=== PATIENT | female | born 1955 | race Caucasian/White ===

== ENCOUNTER 2021-03-07 16:25 | Outpatient (CLI) | payer MEDICARE, MEDICAID, SELFPAY ==
[2021-03-07 14:26] LABS: Abs Immature Grans 0.05 10^3/uL (0.0-0.06); Absolute Basophil Count 0.05 10^3/uL (0.0-0.2); Absolute Eosinophil Count 0.21 10^3/uL (0.0-0.7); Absolute Lymphocyte Count 1.31 10^3/uL (1.2-3.4); Absolute Monocyte Count 0.62 10^3/uL (0.1-0.8); Absolute Neutrophil Count 7.94 10^3/uL (1.2-6.7); Basophils % 0.5; Eosinophils % 2.1; HCT 41.4 % (36.0-46.0); HGB 13.4 g/dL (11.2-15.7); Immature Grans % 0.5; Lymphocytes % 12.9; MCH 27.3 pg (27.0-33.0); MCHC 32.4 % (32.0-36.0); MCV 84.3 fL (80-95); MPV 10.8 fL (8.0-11.0); Monocytes % 6.1; Neutrophils % 77.9; Nucleated RBC 0 %; Platelet Count 249 10^3/uL (130-400); RBC 4.91 10^6/uL (3.93-5.22); RDW 13.2 % (11.7-14.6); RDW-SD 41.2 fL; WBC 10.18 10^3/uL (4.4-10.8)
[2021-03-07 15:43] LABS: ALT 15 U/L (14-59); AST 10 U/L (15-37); Albumin 3.6 g/dL (3.4-5.0); Alkaline Phosphatase 81 U/L (46-116); Anion Gap 9.6 mmol/L (3-11); BUN 24 mg/dL (7-18); Bilirubin, Total 0.5 mg/dL (0.2-1.0); CO2 26.4 mmol/L (21.0-32.0); CREATININE 1.1 mg/dL (0.55-1.02); Calcium 9.2 mg/dL (8.5-10.1); Chloride 104 mmol/L (98-107); Estimated GFR 49.54 (mL/min/1.73m2); Glucose 157 mg/dL (74-106); Potassium 4.5 mmol/L (3.5-5.1); Sodium 140 mmol/L (136-145); Total Protein 6.8 g/dL (6.4-8.2)
== END 2021-03-07 16:26 | disposition home or self-care (01) ==
LOC: LBO 16:52
PROVIDERS: Visit Provider Internal Medicine Hematology & Oncology
DX: C50.911 Malignant neoplasm of unspecified site of right female breast (principal)
CPT/HCPCS: 36415; 80053; 85025

== ENCOUNTER 2022-08-12 12:03 | Outpatient (CLI) | payer MEDICARE, MEDICAID, SELFPAY ==
--- NOTE | 2022-08-12 06:00 | DI.RAD_ITS ---
Exam(s) XR PAIN CLINIC LUMBAR SP 2V EXAM: XR PAIN CLINIC LUMBAR SP 2V CLINICAL HISTORY: Dx: Lumbar Radiculopathy TECHNIQUE: 2D and realtime digital imaging was performed. CONTRAST MATERIAL: Refer to procedure report. COMPARISON: No exams were available for comparison FINDINGS: Fluoroscopy was provided for Dr. Ortega during the performance of a lumbar epidural steroid injection. Please refer to the procedure report for complete details. Ka,r=8.4 mGy IMPRESSION:
[2022-08-12 12:15] VITALS: BP 147/91; PULSE 94; RESP 20; TEMP 36.4; O2SAT 96
[2022-08-12] MEDS: Omnipaque 240 MG/ML 50 ML BTL IJ (13:02)
[2022-08-12] MEDS: methylPREDNISolone ACETATE 80 MG/ML VIAL IJ (13:02)
[2022-08-12 13:03] VITALS: BP 149/72; PULSE 54; RESP 19; O2SAT 96
--- NOTE | 2022-08-12 13:28 | PDOC.PAIN_ITS ---
Date of service: 08/12/22 Time of Service: 13:28 Pain Managment Procedure Note Procedure Note Procedure Note: Lumbar Epidural Steroid Injection Procedure Note COMMENTS: She was previously evaluated in our office. Pre-procedure pain VAS was 6/10 Dx: Lumbosacral radiculopathy La Garcia has been referred to the [facility] for lumbar epidural steroid injection. The patient was greeted by the nurse who verified patients name and . Patient was then taken to the fluoroscopy suite. The patient was interviewed and the medial record reviewed. There were no medical, pharmacologic, radiographic, or other structural contraindications to attempting fluoroscopically guided lumbar epidural steroid injection. Risks and expected side effects as well as potential benefits of the procedure were reviewed and voiced concerns expressed. The patient consent form was signed and witnessed. Standard patient time-out procedure was performed. The patient was placed in the prone position on the fluoroscopy table and automated blood pressure cuff and pulse oximeter applied. The skin entry point for entering/approaching the epidural space at the L5-S1 and marked. Following thorough chlorhexadine preparation of the skin and draping and 1% lidocaine infiltration of the skin entry point and subcutaneous tissues, a 18 gauge Touhy needle was placed under fluoroscopic guidance and with loss of resistance technique into the epidural space. Needle tip placement and depth were aided and confirmed by fluoroscopy. There was no paresthesia or return of blood or CSF through the needle. 1 cc's of Omnipaque 240 was injected with clear epidural spread confirmed with fluoroscopy. 80mg depomedrol was injected. There was not any unusual discomfort expressed by La Garcia. Patient's vital signs were stable throughout the procedure and were as recorded in nursing records. Follow up plans and appointments were discussed with patient. Post procedure instruction was given as documented in nursing records and having met discharge criteria and was discharged from the [facility]. COMMENTS: If this procedure is helpful (improvement in pain and/or functioning by at least 50% for at least 3 months), it can be completed up to 4 times per 12 months. Todd Ortega DO, MPH [facility]-Pain Management [facility] for [facility]
== END 2022-08-12 12:04 | disposition home or self-care (01) ==
PROVIDERS: Visit Provider Preventive Medicine Occupational Medicine
DX: M54.17 Radiculopathy, lumbosacral region (principal); M54.50 Low back pain, unspecified
CPT/HCPCS: 62323; 72100; J1040; Q9967

== ENCOUNTER 2023-09-02 12:57 | Outpatient (CLI) | payer MEDICARE, MEDICAID, SELFPAY ==
--- NOTE | 2023-09-02 06:15 | DI.RAD_ITS ---
Exam(s) XR PAIN CLINIC LUMBAR SP 2V EXAM: XR PAIN CLINIC LUMBAR SP 2V CLINICAL HISTORY: Lumbar Radiculopathy TECHNIQUE: 2D and realtime digital imaging was performed. CONTRAST MATERIAL: Refer to procedure report. COMPARISON: No exams were available for comparison FINDINGS: Fluoroscopy was provided for Dr. Ortega during the performance of a lumbar epidural steroid injection. Please refer to the procedure report for complete details. Ka,r=8.46 mGy IMPRESSION: RADIATION DOSE DELIVERED: 0.0 0.0 0
[2023-09-02 13:10] VITALS: BP 125/68; PULSE 50; RESP 20; TEMP 36.4; O2SAT 94
[2023-09-02 13:29] VITALS: PULSE 53; RESP 24; O2SAT 93
[2023-09-02 13:30] VITALS: PULSE 55; RESP 26; O2SAT 93
--- NOTE | 2023-09-02 13:37 | PDOC.PAIN ---
Date of service: 09/02/23 Time of Service: 13:37 Pain Managment Procedure Note Procedure Note Procedure Note: PROCEDURE NOTE LUMBAR EPIDURAL STEROID INJECTION Date of Service: September 02, 2023 Patient:La Askew? Provider: Todd Ortega DO, MPH La Garcia has been referred to the [facility] for a lumbar epidural steroid injection. Pre-operative diagnosis: Lumbosacral Radiculopathy Post-operative diagnosis: Same Pre-Procedure Pain: VAS= 6 /10 Comments: She last had this procedure on 08/12/22 and had >6 months of >50% pain relief. La was interviewed and the medical record was reviewed.? There were no medical, pharmacologic, radiographic or other structural contraindications to attempting fluoroscopically guided Lumbar epidural steroid injection.? Risks, potential side effects, indications, and potential benefits of the procedure were reviewed with La.? Questions and concerns were addressed.? After it was clear that La was fully informed about the procedure, the printed consent form was signed by the patient and myself.? La was placed in the prone position on the fluoroscopy table and automated blood pressure cuff and pulse oximeter applied. The skin entry point for entering/approaching the epidural space for the lumbar epidural steroid injection was marked. Following thorough chlorhexadine preparation of the skin and draping and 1% lidocaine infiltration of the skin entry point and subcutaneous tissues, an 18 gauge Touhy needle was placed and advanced under fluoroscopic guidance and with loss of resistance technique into the L5-S1 epidural space. Needle tip placement and depth were aided and confirmed by fluoroscopy. There was no paresthesia or return of blood or CSF through the needle. 1 mls of Omnipaque 240 was injected with clear epidural spread confirmed with fluoroscopy. 80 mg of Depo-Medrol was? injected. This was followed by 1 ml of preservative-free normal saline to flush the steroid out of the needle. There was no unusual discomfort expressed by La. The needle was withdrawn without difficulty. (49 mls of Omnipaque was wasted) La was observed and was without hemodynamic, neurologic, or allergic reactions.? Fluoroscopic images were digitally archived. La's vital signs were stable throughout the procedure and were as recorded in nursing records. Follow up plans and appointments were discussed with La. Post procedure instruction was given as documented in nursing records and having met discharge criteria La was discharged from the [facility]. COMMENTS: No apparent complications. Post-procedure pain: VAS= 0/10. La to contact Center for [facility] as needed. If at least 50% improvement in pain and/or function for at least 3 months is achieved, this procedure can be repeated. I personally performed this entire procedure. TODD ORTEGA DO, MPH [employer]-subspecialty board certification in Pain Medicine [facility]-Center for Pain Management
[2023-09-02] MEDS: Epidural Tray 1 EACH MC (13:45)
[2023-09-02] MEDS: Omnipaque 240 MG/ML 50 ML BTL IJ (13:45)
[2023-09-02] MEDS: methylPREDNISolone ACETATE 80 MG/ML VIAL IJ (13:45)
== END 2023-09-02 12:58 | disposition home or self-care (01) ==
LOC: PC 12:57
PROVIDERS: PCP Nurse Practitioner Family; Visit Provider Preventive Medicine Occupational Medicine
DX: M54.50 Low back pain, unspecified (principal); M54.17 Radiculopathy, lumbosacral region
CPT/HCPCS: 62323; 72100; J1010; Q9967

== ENCOUNTER → 2023-10-08 09:12 | Outpatient (BNVA) | payer MEDICARE, MEDICAID, SELFPAY | PROVIDERS: PCP Nurse Practitioner Family; Referring Provider Nurse Practitioner Family; Visit Provider Nurse Practitioner Gerontology | DX: R32 Unspecified urinary incontinence (principal) | CPT/HCPCS: 99205 ==

== ENCOUNTER 2024-05-11 13:42 | Outpatient (CLI) | payer MEDICARE, MEDICAID, SELFPAY ==
--- NOTE | 2024-05-11 06:00 | DI.RAD_ITS ---
Exam(s) XR PAIN CLINIC LUMBAR SP 2V EXAM: XR PAIN CLINIC LUMBAR SP 2V CLINICAL HISTORY: Dx: Lumbar Radiculopathy. TECHNIQUE: Fluoroscopy was provided for the referring physician for guidance with performing pain cl inic injection procedure. COMPARISON: No exams were available for comparison FINDINGS: Please see procedure note for details. Fluoro time: 19.4 seconds RADIATION DOSE DELIVERED: Ka,r=9.7 mGy
[2024-05-11 13:49] VITALS: BP 104/66; PULSE 89; RESP 20; TEMP 36.7; O2SAT 96
[2024-05-11 14:16] VITALS: PULSE 110; PULSE 112; RESP 24; O2SAT 93
[2024-05-11 14:18] VITALS: BP 108/82; PULSE 105; PULSE 106; RESP 19; O2SAT 91
[2024-05-11 14:20] VITALS: PULSE 109; RESP 19; O2SAT 91
[2024-05-11] MEDS: Omnipaque 240 MG/ML 50 ML BTL IJ (14:31)
[2024-05-11] MEDS: Epidural Tray 1 EACH MC (14:31)
[2024-05-11] MEDS: methylPREDNISolone ACETATE 80 MG/ML VIAL IJ (14:32)
--- NOTE | 2024-05-11 15:36 | PDOC.PAIN_ITS ---
Date of service: 05/11/24 Time of Service: 15:00 Pain Managment Procedure Note Procedure Note Procedure Note: PROCEDURE NOTE LUMBAR EPIDURAL STEROID INJECTION Date of Service: May 11, 2024 Patient:La Askew? Provider: Todd Ortega DO, MPH La Garcia has been referred to the [facility] for a lumbar epidural steroid injection. Pre-operative diagnosis: Lumbosacral Radiculopathy ICD-10 M54.16 Post-operative diagnosis: Same Pre-Procedure Pain: VAS= 7 /10 Comments: She did very well with her last LESI. She had >4 months of >50% pain relief and this pain has mostly returned. La was interviewed and the medical record was reviewed.? There were no medical, pharmacologic, radiographic or other structural contraindications to attempting fluoroscopically guided Lumbar epidural steroid injection.? Risks, potential side effects, indications, and potential benefits of the procedure were reviewed with La.? Questions and concerns were addressed.? After it was clear that aL was fully informed about the procedure, the printed consent form was signed by the patient and myself.? La was placed in the prone position on the fluoroscopy table and automated blood pressure cuff and pulse oximeter applied. The skin entry point for entering/approaching the epidural space for the lumbar epidural steroid injection was marked. Following thorough chlorhexadine preparation of the skin and draping and 1% lidocaine infiltration of the skin entry point and subcutaneous tissues, an 18 gauge Touhy needle was placed and advanced under fluoroscopic guidance and with loss of resistance technique into the L5-S1 epidural space. Needle tip placement and depth were aided and confirmed by fluoroscopy. There was no paresthesia or return of blood or CSF through the needle. 1 mls of Omnipaque 240 was injected with clear epidural spread confirmed with fluoroscopy. 80 mg of Depo-Medrol was? injected. This was followed by 1 ml of preservative-free normal saline to flush the steroid out of the needle. There was no unusual discomfort expressed by La. The needle was withdrawn without difficulty. (49 mls of Omnipaque was wasted) La was observed and was without hemodynamic, neurologic, or allergic reactions.? Fluoroscopic images were digitally archived. La's vital signs were stable throughout the procedure and were as recorded in nursing records. Follow up plans and appointments were discussed with La. Post procedure instruction was given as documented in nursing records and having met discharge criteria La was discharged from the [facility]. COMMENTS: No apparent complications. Post-procedure pain: VAS= 0/10. La to contact [facility] as needed. If at least 50% improvement in pain and/or function for at least 3 months is achieved, this procedure can be repeated. I personally performed this entire procedure. TODD ORTEGA DO, MPH [employer]-subspecialty board certification in Pain Medicine [facility] Coding Conscious Sedation used for procedure: No CPT Codes: Inj Spine L/S w/Imaging - [id number] ([id number] ~G) Additional Codes: Date of Service ([id number]) Date of service: 05/11/24
== END 2024-05-11 13:43 | disposition home or self-care (01) ==
LOC: PC 13:43
PROVIDERS: PCP Nurse Practitioner Family; Visit Provider Preventive Medicine Occupational Medicine
DX: M54.17 Radiculopathy, lumbosacral region (principal); M54.50 Low back pain, unspecified
CPT/HCPCS: 62323; 72100; J1010; Q9967